=== PATIENT | male | born 1990 | race Caucasian/White ===

== ENCOUNTER 2025-07-11 08:45 | Outpatient (CLI) | payer BC | END 2025-07-11 08:46 | disposition home or self-care (01) | LOC: CSHULT 08:45 | PROVIDERS: ATTEND Nurse Practitioner Family | DX: R10.31 Right lower quadrant pain (principal); R19.7 Diarrhea, unspecified; N28.89 Other specified disorders of kidney and ureter; K76.0 Fatty (change of) liver, not elsewhere classified | CPT/HCPCS: 76700 ==

== ENCOUNTER 2025-07-19 13:09 | Outpatient (CLI) | payer BC, OTHER | END 2025-07-19 13:10 | disposition home or self-care (01) | LOC: CSHCT 13:09 | PROVIDERS: ATTEND Nurse Practitioner Family | DX: N28.89 Other specified disorders of kidney and ureter (principal) | CPT/HCPCS: 74176 ==